=== PATIENT | female | born 1950 | race Caucasian/White ===

== ENCOUNTER 2018-02-07 10:26 | Emergency (ER) | payer MEDICARE, OTHER ==
[2018-02-07 10:39] VITALS: RESP 16
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
--- NOTE | 2018-02-07 12:50 | RAD ---
Date of service: 02/07/2018 PROCEDURE: Radiographs of the Lumbar Spine. HISTORY: lumbar pain COMPARISON: None available. FINDINGS: BONES: Alignment appears satisfactory. No listhesis. No acute displaced fracture identified. Osseous demineralization. Multilevel degenerative changes. Facet hypertrophy. DISC SPACES: Unremarkable. OTHER FINDINGS: Moderate constipation. IMPRESSION: Osseous demineralization. Multilevel degenerative changes. Moderate constipation.
[2018-02-07 13:20] VITALS: BP 132/84; PULSE 84; TEMP 98.8
[2018-02-07 15:31] VITALS: O2SAT 99
== END 2018-02-07 13:20 | disposition home or self-care (01) ==
LOC: C.ER 10:26
DX: S33.5XXA Sprain of ligaments of lumbar spine, initial encounter (principal); X58.XXXA Exposure to other specified factors, initial encounter
CPT/HCPCS: 72100; 96372; 99283; J1885